=== PATIENT | female | born 1995 | race Caucasian/White ===

== ENCOUNTER 2018-02-10 13:40 | Inpatient (IN) | payer MEDICARE ==
[2018-02-10 14:00] VITALS: BMI 28.0
[2018-02-10] MEDS ORDERED: morphine CARPU-JECT 4 MG/1 ML DISP.SYRIN IVPUSH ONE (14:11)
--- NOTE | 2018-02-10 14:14 | PDOC ---
Attending Attestation - HPI HPI: 02/10/18 15:15 Patient is a 22 year old female, with no significant past medical history who presents to the ED with complaints of diffuse abdominal pain that began earlier today. Patient states mother came with her to the ED, but reports her mother is unaware of the ectopic and does not wish her to know. Patient reports being diagnosed with an ectopic x2 weeks ago at [facility]. She reports being given methotrexate and discharged from hospital. Patient reports going to her follow up appointment, stating she was told that her beta levels were found to be going down. She reports experiencing gradual lower abdominal pain, that she states increased in intensity this afternoon, prompting her to come into the ED for further evaluation. Patient reports experiencing associate symptoms of dysuria, with slight blood spotting but denies any major passing of clots. She reports being tested for STDs, as well as pelvic exam at [facility] with results coming back negative. Denies chest pain, Sob. Denies nausea, vomiting. Denies fevers, chills. Denies contact with sick individuals, out of state traveling. Denies hematuria. Denies diarrhea, constipation. Denies any other symptoms. Allergies: None Social history: No smoking. No alcohol. No illicit drugs. Surgical history: None PMD: None <Lamin Hatfield - Last Filed: 02/10/18 15:15> - Resident Resident Name: Giles Deleon - ED Attending Attestation I have performed the following: I have examined & evaluated the patient, The case was reviewed & discussed with the resident, I agree w/resident's findings & plan, Exceptions are as noted - Physicial Exam PE: GENERAL: Awake, alert, and fully oriented. Tearful, appears uncomfortable. HEAD: No signs of trauma. EYES: PERRLA, EOMI, sclera anicteric, conjunctiva clear. ENT: Auricles normal inspection, hearing grossly normal, nares patent, oropharynx clear without exudates. Moist mucosa. NECK: Normal ROM, supple, no lymphadenopathy, JVD, or masses. LUNGS: Breath sounds equal, clear to auscultation bilaterally. No wheezes, and no crackles. HEART: Regular rate and rhythm, normal S1 and S2, no murmurs, rubs or gallops. ABDOMEN: Soft, +BLQ tenderness, normoactive bowel sounds. +Guarding/rebound. No masses. EXTREMITIES: Normal range of motion, no edema. No clubbing or cyanosis. No cords , erythema, or tenderness. NEUROLOGICAL: Cranial nerves II through XII grossly intact. Normal speech, normal gait. Motor and sensation intact. SKIN: Warm, Dry, normal turgor, no rashes or lesions noted. - Medical Decision Making 02/10/18 14:32 Pt is s/p recent methotrexate for ectopic. She states she had spotting, but never had much bleeding afterwards. She did not have a follow-up appointment since. Will obtain emergent ultrasound to r/o ruptured ectopic, as we cannot confirm if it resolved or if the methotrexate failed. Morphine for pain. <Minoo Bernal - Last Filed: 02/10/18 18:50>
[2018-02-10] MEDS ORDERED: ONDANSETRON 4 MG/2 ML VIAL IVPUSH ONE ×2 (14:25→17:31)
[2018-02-10] MEDS ORDERED: morphine SULFATE 4 MG/ML VIAL ONE (14:30)
[2018-02-10] MEDS ORDERED: ONDANSETRON 4 MG/2 ML VIAL ONE ×2 (14:56→17:33)
[2018-02-10 15:12] LABS: HEMATOCRIT 38.2 % (32.4-45.2); HEMOGLOBIN 12.5 GM/dL (10.7-15.3); MCH 29.7 pg (25.7-33.7); MCHC 32.9 g/dl (32.0-36.0); MEAN CELL VOLUME 90.5 fl (80-96); PLATELET COUNT 428 K/MM3 (134-434); RBC 4.22 M/mm3 (3.60-5.2); RDW 13.6 % (11.6-15.6); WHITE BLOOD COUNT 8.3 K/mm3 (4.0-10.0)
--- NOTE | 2018-02-10 15:12 | PDOC ---
History of Present Illness - General Chief Complaint: Pain, Acute Stated Complaint: ABDOMINAL PAIN Time Seen by Provider: 02/10/18 13:52 History Source: Patient Exam Limitations: No Limitations - History of Present Illness Initial Comments: 02/10/18 15:06 Patient is a 22F here today complaining of lower abdominal pain. 2 weeks ago, she was diagnosed with an ectopic and given methotrexate at [facility]. She went to follow up and reports decreased beta-hcg levels. She also reports that ultrasounds were done, but does not know the results of the follow up ultrasounds. The initial ultrasound showed an ectopic on the right side. She endorses dysuria. Denies nausea, vomiting, fevers, chills. States that she's had vaginal spotting. Denies history of STDs, states that she is sexually active without condom use with one partner. Denies discharge. Prior ended in termination. Past History - Past Medical History Allergies/Adverse Reactions: Allergies Allergy/AdvReac Type Severity Reaction Status Date / Time No Known Allergies Allergy Verified 02/10/18 13:49 Home Medications: Ambulatory Orders NK [No Known Home Medication] 02/10/18 COPD: No - Suicide/Smoking/Psychosocial Hx Smoking History: Never smoked Have you smoked in the past 12 months: No Information on smoking cessation initiated: No Hx Alcohol Use: No Drug/Substance Use Hx: No Substance Use Type: None Review of Systems - Review of Systems Comments:: 02/10/18 15:09 GENERAL/CONSTITUTIONAL: No fever or chills. No weakness. HEAD, EYES, EARS, NOSE AND THROAT: No change in vision. No sore throat. CARDIOVASCULAR: No chest pain or shortness of breath RESPIRATORY: No cough, wheezing, or hemoptysis. GASTROINTESTINAL: No nausea, vomiting, diarrhea or constipation. GENITOURINARY: Positive for dysuria and frequency. Negative for change in urination. MUSCULOSKELETAL: No joint or muscle swelling or pain. No neck or back pain. SKIN: No rash NEUROLOGIC: No headache, vertigo, loss of consciousness, or change in strength/ sensation. ENDOCRINE: No increased thirst. No abnormal weight change ALLERGIC/IMMUNOLOGIC: No hives or skin allergy. *Physical Exam - Vital Signs Last Vital Signs Temp Pulse Resp BP Pulse Ox 98.1 F 86 20 125/81 100 02/10/18 13:52 02/10/18 13:52 02/10/18 13:52 02/10/18 13:52 02/10/18 13:52 - Physical Exam Comments: 02/10/18 15:11 GENERAL: Awake, alert, and fully oriented HEAD: No signs of trauma, normocephalic, atraumatic EYES: PERRLA, EOMI, sclera anicteric, conjunctiva clear ENT: Auricles normal inspection, hearing grossly normal, nares patent, oropharynx clear without exudates. Moist mucosa NECK: Normal ROM, supple, no lymphadenopathy, JVD, or masses LUNGS: No distress, speaks full sentences, clear to auscultation bilaterally HEART: Regular rate and rhythm, normal S1 and S2, no murmurs, rubs or gallops, peripheral pulses normal and equal bilaterally. ABDOMEN: +supra pubic and RLQ tenderness, +guarding, +rebound. No masses EXTREMITIES: Normal inspection, Normal range of motion, no edema. No clubbing or cyanosis. NEUROLOGICAL: Cranial nerves II through XII grossly intact. Normal speech, no focal sensorimotor deficits SKIN: Warm, Dry, normal turgor, no rashes or lesions noted. ED Treatment Course - LABORATORY CBC & Chemistry Diagram: 02/10/18 15:00 02/10/18 15:00 - RADIOLOGY Radiology Studies Ordered: Category Date Time Status TRANSVAGINAL ULTRASOUND US [US] Stat Ultrasound 02/10/18 14:12 Ordered - Medications Given in the ED: ED Medications Discontinued Medications Generic Name Dose Route Start Last Admin Trade Name Freq PRN Reason Stop Dose Admin Morphine Sulfate 4 mg 02/10/18 14:11 02/10/18 14:50 Morphine Injection - IVPUSH 02/10/18 14:12 4 mg ONCE ONE Administration Medical Decision Making - Medical Decision Making 02/10/18 15:12 Patient is 22F with history of ectopic s/p methotrexate here today with abdominal pain. Vital signs stable and normal. DDx weighted towards ruptured ectopic given no history of passing products. Will workup with abdominal labs, type and screen, pt/inr, beta quant, tvus. Given morphine for pain. 02/10/18 15:42 Laboratory Tests 02/10/18 02/10/18 02/10/18 15:00 15:00 15:00 WBC 8.3 Hgb 12.5 Plt Count 428 INR 1.13 Beta HCG, Quant Urine Blood 2+ H Urine Nitrite Negative Ur Leukocyte Esterase Negative Urine WBC (Auto) 1 02/10/18 15:00 WBC Hgb Plt Count INR Beta HCG, Quant 912.6 Urine Blood Urine Nitrite Ur Leukocyte Esterase Urine WBC (Auto) CBC normal. INR normal. UA shows blood, no infection. CMP reassuring. Beta quant positive, unknown baseline. 02/10/18 16:02 [place] contacted, beta on 02/01 was 3.3k, 02/05 was 2.0k. 02/10/18 16:13 Dr Jacques contacted, will see patient. 02/10/18 16:47 Dr Jacques will take to OR. *DC/Admit/Observation/Transfer Diagnosis at time of Disposition: Ruptured ectopic - Discharge Dispostion Condition at time of disposition: Stable Decision to Admit order: Yes - Referrals - Patient Instructions - Post Discharge Activity
[2018-02-10 15:22] LABS: URINE APPEARANCE CLEAR; URINE BILIRUBIN NEGATIVE (<2.0 mg/dL); URINE BLOOD 2+ (NEGATIVE); URINE COLOR LTYELLOW; URINE GLUCOSE (UA) NEGATIVE (NEGATIVE); URINE KETONE TRACE (NEGATIVE); URINE LEUK ESTERASE NEGATIVE (NEGATIVE); URINE NITRITE NEGATIVE (NEGATIVE); URINE PROTEIN NEGATIVE (NEGATIVE); URINE UROBILINOGEN NEGATIVE mg/dL (0.2-1.0)
[2018-02-10 15:24] LABS: EPI CELLS RARE /HPF (FEW); URINE MUCUS RARE
[2018-02-10 15:25] LABS: INR 1.13 (0.82-1.09); PROTHROMBIN TIME (PATIENT) 12.8 SEC (9.7-13.0)
[2018-02-10 15:35] LABS: ALBUMIN 3.9 g/dl (3.4-5.0); ANION GAP 9 (8-16); BILIRUBIN,TOTAL 0.5 mg/dL (0.2-1.0); BLOOD UREA NITROGEN 9 mg/dL (7-18); CALCIUM 8.6 mg/dL (8.5-10.1); CHLORIDE 105 mmol/L (98-107); CO2 23 mmol/L (21-32); CREATININE 0.7 mg/dL (0.55-1.02); GLUCOSE,RANDOM 98 mg/dL (74-106); POTASSIUM 3.9 mmol/L (3.5-5.1); SGOT/AST 19 U/L (15-37); SGPT/ALT 18 U/L (12-78); SODIUM 137 mmol/L (136-145); TOT PROT 6.8 g/dl (6.4-8.2)
[2018-02-10 15:37] LABS: ALK PHOS 93 U/L (45-117)
[2018-02-10] MEDS ORDERED: LACTATED RINGERS SOLUTION 1,000 ML/1,000 ML INFUS.BAG IV SCH (17:00)
[2018-02-10] MEDS ORDERED: morphine CARPU-JECT 2 MG/1 ML DISP.SYRIN IM ONE (17:30)
[2018-02-10] MEDS ORDERED: morphine CARPU-JECT 2 MG/1 ML DISP.SYRIN ONE ×2 (17:33→19:22)
--- NOTE | 2018-02-10 17:35 | CON.OBG ---
Consult Consult Specialty:: MEDICAL RESEARCHER Reason for Consultation:: Ectopic - History of Present Illness Chief Complaint: Abdominal pain History of Present Illness: 22 yo , LMP 01/14/18, presents to ER c/o severe abdominal pain. She denies any nausea nor vomiting. exam : positive Pelvic sonogram shows evidence of a right adnexa mass consistent with an ectopic . - History Source History Provided By: Patient Limitations to Obtaining History: No Limitations - Past Medical History ...LMP: 01/14/18 ...: Yes - Past Surgical History Past Surgical History: Yes: None - Alcohol/Substance Use Hx Alcohol Use: No History of Substance Use: reports: None - Smoking History Smoking history: Never smoked Have you smoked in the past 12 months: No - Social History Usual Living Arrangement: With Parent History of Recent Travel: No Home Medications - Allergies Allergies/Adverse Reactions: Allergies Allergy/AdvReac Type Severity Reaction Status Date / Time No Known Allergies Allergy Verified 02/10/18 13:49 - Home Medications Home Medications: Ambulatory Orders NK [No Known Home Medication] 02/10/18 Family Disease History - Family Disease History Family History: Unremarkable Review of Systems - Review of Systems Constitutional: reports: No Symptoms Eyes: reports: No Symptoms HENT: reports: No Symptoms Neck: reports: No Symptoms Cardiovascular: reports: No Symptoms Respiratory: reports: No Symptoms Gastrointestinal: reports: No Symptoms Genitourinary: reports: Pain Breasts: reports: No Symptoms Reported Musculoskeletal: reports: No Symptoms Integumentary: reports: No Symptoms Neurological: reports: No Symptoms Endocrine: reports: No Symptoms Hematology/Lymphatic: reports: No Symptoms Psychiatric: reports: No Symptoms Pain Intensity: 6 Physical Exam-MEDICAL RESEARCHER Vital Signs: Vital Signs Temperature 98.2 F 02/10/18 17:16 Pulse Rate 82 02/10/18 17:16 Respiratory Rate 17 02/10/18 17:16 Blood Pressure 114/65 02/10/18 17:16 O2 Sat by Pulse Oximetry (%) 100 02/10/18 17:16 Constitutional: Yes: Well Nourished Eyes: Yes: Conjunctiva Clear HENT: Yes: Atraumatic Neck: Yes: Supple Cardiovascular: Yes: Regular Rate and Rhythm Respiratory: Yes: Regular Gastrointestinal: Yes: Normal Bowel Sounds External Genitalia: Yes: Normal Vaginal Exam: Yes: Normal Cervix: Yes: Cerv Motion Tenderness Uterus: Yes: Tender Breast(s): Yes: WNL Musculoskeletal: Yes: WNL Extremities: Yes: WNL Neurological: Yes: Alert, Oriented ...Motor Strength: WNL Psychiatric: Yes: Alert, Oriented Labs: CBC, BMP 02/10/18 15:00 02/10/18 15:00 Assessment/Plan Abdominal pain Ectopic Pre op for Laparoscopy Consent signed Anesthesia to see patient
[2018-02-10] MEDS ORDERED: morphine CARPU-JECT 2 MG/1 ML DISP.SYRIN IVPUSH ONE ×2 (17:45→19:14)
[2018-02-10] MEDS ORDERED: SUCCINYLCHOLINE CHLORIDE 200 MG/10 ML VIAL ONE (19:59)
[2018-02-10] MEDS ORDERED: ROCURONIUM BROMIDE 50 MG/5 ML VIAL ONE (19:59)
[2018-02-10] MEDS ORDERED: LIDOCAINE HCL/PF 2% SDV 5ML VIAL ONE (19:59)
[2018-02-10] MEDS ORDERED: PROPOFOL 20 ML ONE (19:59)
[2018-02-10] MEDS ORDERED: GLYCOPYRROLATE 0.2 MG/1 ML VIAL ONE ×2 (21:19)
[2018-02-10] MEDS ORDERED: NEOSTIGMINE METHYLSULFATE 0.5 MG/ML - 10 ML MDV ONE (21:19)
--- NOTE | 2018-02-10 21:33 | OP ---
Operative Note - Note: Operative Date: 02/10/18 Pre-Operative Diagnosis: Ectopic Operation: Laparoscopic right salpingectomy Findings: Hemoperitoneum ( 1 liter ) Rupture right tubal Absent left tube ( Unicornuate uterus ) Both ovaries visualized Post-Operative Diagnosis: Same as Pre-op Surgeon: Paty Jacques Comfort Station Attendant: Umesh Agee Anesthesia: General Specimens Removed: Right tubal
[2018-02-10] MEDS ORDERED: ONDANSETRON 4 MG/2 ML VIAL IVPUSH PRN (21:34)
[2018-02-10] MEDS ORDERED: PROMETHAZINE HCL 25 MG/1 ML VIAL IVPUSH PRN (21:34)
[2018-02-10] MEDS ORDERED: oxyCODONE HCL 5 MG TABLET PO PRN (21:34)
[2018-02-10] MEDS ORDERED: LACTATED RINGERS SOLUTION 1,000 ML IV SCH (22:00)
[2018-02-10 23:55] VITALS: BP 138/88; PULSE 76; TEMP 98.7
--- NOTE | 2018-02-12 16:46 | PATH ---
Surgical Pathology Report Patient Name: JOSE GARRISON [facility]. Rec. #: [id number] /Age/Gender: 1995 (Age: 22) / F Account: [id number] Location: [facility] OBS/TIRE SETTER Taken: 02/10/2018 Received: 02/11/2018 Reported: 02/12/2018 Physicians: Paty Jacques M.D. Specimen(s) Received RIGHT FALLOPIAN TUBE AND CONTENTS Clinical History Ectopic , ruptured right side Final Diagnosis FALLOPIAN TUBE AND CONTENTS, RIGHT, LAPAROSCOPIC SALPINGECTOMY: CHORIONIC VILLI IN A BACKGROUND OF HEMORRHAGE PRESENT WITHIN THE FALLOPIAN TUBE, CONSISTENT WITH ECTOPIC . Electronically Signed Shannon Stauffer M.D. Gross Description Received in formalin labeled "right fallopian tube and contents," is a 5 cm in length fimbriated, dilated appearing portion of fallopian tube. The outer surface is elkins-anthony and smooth. Sectioning reveals a focally dilated lumen containing red-brown blood clot. No definite villous tissue or somatic tissue is identified. Mowing Machine Operator sections are submitted in 3 cassettes as follows: 1-fimbria; 1-2-mvbjr-sections of fallopian tube. /02/11/2018 [facility]02/11/2018
== END 2018-02-11 01:15 | disposition home or self-care (01) | DRG 545 ==
LOC: JER 13:40 → JERBED 16:47 → J3W 23:49
PROVIDERS: ADMIT Obstetrics & Gynecology; ATTEND Obstetrics & Gynecology
PROC: 10T24ZZ Resection of Products of Conception, Ectopic, Percutaneous Endoscopic Approach (ICD-10-PCS; 2018-02-10)
PROC: 0UB54ZZ Excision of Right Fallopian Tube, Percutaneous Endoscopic Approach (ICD-10-PCS; principal; 2018-02-10 20:00)
DX: O00.101 Right tubal pregnancy without intrauterine pregnancy (principal)
CPT/HCPCS: 36415; 76830-TC; 80053; 81003; 81015; 84702; 85027; 85610; 86850; 86900; 86901; 87086; 88305-TC; 94760; 99285-25